=== PATIENT | male | born 1975 | race Caucasian/White ===

== ENCOUNTER → 2024-07-02 07:53 | Outpatient (REF) | payer OTHER, SELFPAY | LOC: RSP 07:53 | PROVIDERS: ATTENDING PHYSICIAN Hospitalist; FAMILY PHYSICIAN Family Medicine | DX: I27.20 Pulmonary hypertension, unspecified (principal); M35.1 Other overlap syndromes | CPT/HCPCS: 94727; 94729; 88738; 94060 ==

== ENCOUNTER → 2024-12-31 09:30 | Outpatient (REF) | payer OTHER, SELFPAY | LOC: RAD 09:30 | PROVIDERS: ATTENDING PHYSICIAN Family Medicine; REFERRING PHYSICIAN Hospitalist | DX: J90 Pleural effusion, not elsewhere classified (principal); R06.02 Shortness of breath | CPT/HCPCS: 71260; Q9967 ==

== ENCOUNTER → 2025-01-14 07:28 | Outpatient (REF) | payer OTHER, SELFPAY ==
[2025-01-14 07:45] VITALS: BP 128/89; BP_SYST 102
[2025-01-14 08:25] VITALS: BP 120/83
[2025-01-14 10:14] LABS: Body Fluid Second Tech EF
== END ==
LOC: RADI 07:28
PROVIDERS: ATTENDING PHYSICIAN Internal Medicine; FAMILY PHYSICIAN Family Medicine
DX: J90 Pleural effusion, not elsewhere classified (principal)
CPT/HCPCS: 32555; 71045; 82945; 83615; 83986; 84478; 87015; 87070; 87102; 87116; 87205; 87206; 88112; 88305; 89051

== ENCOUNTER → 2025-02-05 15:31 | Outpatient (REF) | payer OTHER, SELFPAY | LOC: RAD 15:31 | PROVIDERS: ATTENDING PHYSICIAN Internal Medicine; FAMILY PHYSICIAN Family Medicine | DX: J90 Pleural effusion, not elsewhere classified (principal) | CPT/HCPCS: 71046 ==